=== PATIENT | female | born 1985 | race Caucasian/White ===

== ENCOUNTER 2017-02-20 07:32 | Day surgery (SDC) | payer BC ==
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
[2017-02-20] MEDS ORDERED: LR 1,000 ML IV ONE (08:14)
[2017-02-20] MEDS ORDERED: DOXYCYCLINE HYCLATE 100 MG CAP/TAB PO ONE (08:14)
--- NOTE | 2017-02-20 08:40 | PDHPUP ---
History & Physical Update H&P update statement: This history and physical update is based on an assessment of the patient which was completed after admission or registration (within 24 hours), but prior to the surgery/procedure.
[2017-02-20] MEDS ORDERED: MIDAZOLAM 2 MG/2 ML VIAL ONE (10:09)
[2017-02-20] MEDS ORDERED: DOXYCYCLINE HYCLATE 100 MG CAP/TAB ONE (10:19)
[2017-02-20] MEDS ORDERED: PROPOFOL 200 MG/20 ML VIAL ONE ×2 (10:22→10:23)
[2017-02-20] MEDS ORDERED: fentaNYL 100 MCG/2 ML INJ ONE (10:28)
[2017-02-20] MEDS ORDERED: DOXYCYCLINE INJ 100 MG in NS 250 ML IV ONE (10:30)
--- NOTE | 2017-02-20 10:39 | PDANEPAE ---
ANE History of Present Illness Missed Ab. ANE Past Medical History - Cardiovascular History Hx Hypertension: No Hx Arrhythmias: No Hx Chest Pain: No Hx Coronary Artery / Peripheral Vascular Disease: No Hx CHF / Valvular Disease: No Hx Palpitations: No - Pulmonary History Hx COPD: No Hx Asthma/Reactive Airway Disease: No Hx Recent Upper Respiratory Infection: No Hx Oxygen in Use at Home: No Hx Sleep Apnea: No Sleep Apnea Screening Result - Last Documented: Negative - Surgical History Prior Surgeries: Prior IVF. ANE Review of Systems Review of systems is: negative Review of Systems: - Exercise capacity Exercise capacity: >=4 METS ANE Patient History - Allergies Allergies/Adverse Reactions: Penicillins Allergy (Verified 02/19/17 09:03) - NPO status NPO Status: no food or drink >8 hours NPO Since - Liquids (Date): 02/19/17 NPO Since - Liquids (Time): 18:00 NPO Since - Solids (Date): 02/19/17 NPO Since - Solids (Time): 18:00 - Anes Hx Anes Hx: no prior problems - Smoking Hx Smoking Status: Never smoked Marijuana use: No - Alcohol Use Alcohol Use: Rarely - Family Anes Hx Family Anes Hx: neg - N/A ANE Labs/Vital Signs - Vital Signs Blood Pressure: 98/58 Heart Rate: 65 Respiratory Rate: 18 Height: 167.64 cm Weight: 56.699 kg ANE Physical Exam - Airway Neck exam: FROM Mallampati Score: Class 1 Mouth exam: normal dental/mouth exam - Pulmonary Pulmonary: no respiratory distress - Cardiovascular Cardiovascular: regular rate and rhythym - ASA Status ASA Status: I ANE Anesthesia Plan Anesthesia Plan: GA with mask
[2017-02-20] MEDS ORDERED: ONDANSETRON 4 MG/2 ML VIAL ONE ×2 (11:07→11:27)
[2017-02-20] MEDS ORDERED: KETOROLAC 30 MG/1 ML SDV ONE (11:08)
[2017-02-20] MEDS ORDERED: DEXAMETHASONE 4 MG/ML VIAL ONE ×2 (11:08→11:27)
[2017-02-20] MEDS ORDERED: IBUPROFEN 600 MG TAB PO PRN (11:25)
[2017-02-20 11:44] VITALS: BP 90/52
--- NOTE | 2017-02-20 11:48 | POSTANESTH ---
Post Anesthetic Evaluation Cardiovascular Status: Normal, Stable, Similar to Pre-Op Cond Respiratory Status: Normal, Stable, Similar to Pre-op Cond. Level of Consciousness/Mental Status: Can Participate in Eval, Alert and Oriented Pain Control: Adequate, Prn Tx Ordered Nausea/Vomiting Control: Adequate, Prn Tx Ordered Complications Possibly Related to Anesthesia: None Noted
[2017-02-20] MEDS ORDERED: NALOXONE HCL 0.4 MG/ML INJ IVP PRN (11:49)
[2017-02-20] MEDS ORDERED: HYDROCODONE/APAP 5/325 TAB PO PRN (11:49)
[2017-02-20] MEDS ORDERED: fentaNYL 100 MCG/2 ML INJ IVP PRN (11:49)
[2017-02-20 12:38] VITALS: PULSE 55; RESP 16; TEMP 98.2; O2SAT 98
--- NOTE | 2017-02-20 13:58 | GOP ---
[f rep st] OPERATIVE REPORT DATE OF OPERATION: 02/20/2017 SURGEON: Damaris Mueller MD ANESTHESIA: General anesthesia. ANESTHESIOLOGIST: Sharath Hatch MD. PREOPERATIVE DIAGNOSIS: Missed at 11 weeks by dates, 7 weeks by size. POSTOPERATIVE DIAGNOSIS: Missed at 11 weeks by dates, 7 weeks by size. PROCEDURE PERFORMED: Suction dilation and curettage. FINDINGS: SPECIMENS: Will be products of conception, which will be sent to [facility] for genetic evaluation. ESTIMATED BLOOD LOSS: 20 cc. INDICATIONS: Nora is a 31-year-old, 3, para 1-0-1-1, with a last menstrual period of , and EDC of 09/17/2017, that was set by a 6-week ultrasound. She has had difficulties with conception and has had 2 failed IVF cycles. This was a spontaneous initially seen at [address] [place] [id number] with a crown-rump length of 6 weeks and a slow heart rate of 96. Followup ultrasound a week later showed growth and good heart tones; however, was still showing size less than dates, had a fol lowup ultrasound a week later and showed a demise, baby measuring 8 weeks 0 days with no growth and no heart tones. She was diagnosed with missed . The patient was giving given izaiah atment options of expectant management versus medical management versus surgical management with a dahl ction dilation and curettage. The patient decided to have surgical management. She also wishes to h ave genetic testing with [facility], which will be performed on the products of conception. The patient was consented for the procedure. She understood the risks and benefits; the risks includ ing bleeding, infection, damage to the uterus including possible risk of perforation, damage to other organs if perforation were to occur, risk of incomplete treatment with spontaneous expulsion and/or need for repeat procedure, and compromise of future fertility. She understood these risks and benefi ts, and agreed to proceed. DESCRIPTION OF PROCEDURE: The patient was taken to the operating room. She was placed under general anesthesia without difficulty. She was prepped and draped in the dorsal lithotomy position. An ope n-sided speculum was placed in the vagina, and a single-tooth tenaculum was used to grasp the anterio r lip of the cervix. This was all performed after a WHO time-out. The uterus sounded to 10 cm. The cervix was then progressively dilated with Sam dilators to a #9. A #9 curved suction curette was gently advanced from the cervix to the fundus. Suction was applied and products of conception were re moved with several passages of the suction device. Sharp curettage was then performed in a clockwise fashion until gritty texture was palpated throughout the entire endometrial contents. Suction was a pplied and there was no further tissue felt or seen. Speculum was removed. Tenaculum was removed. There was no bleeding on the cervix. The transvaginal ultrasound was performed, and the uterus showe d a normal and thin endometrial stripe, no retained products of conception. The patient tolerated the procedure well. Sponge, lap, needle, and instrument counts were correct x2 . Patient went to the recovery room in good condition. IV FLUIDS: 500 cc. URINE OUTPUT: Not measured. /[id number]/MODL
== END 2017-02-20 13:15 | disposition home or self-care (01) ==
LOC: FOBOP 07:32
PROVIDERS: ATTEND Obstetrics & Gynecology
PROC: 10D17ZZ Extraction of Products of Conception, Retained, Via Natural or Artificial Opening (ICD-10-PCS; principal; 2017-02-20)
DX: O02.1 Missed abortion (principal); O09.811 Supervision of pregnancy resulting from assisted reproductive technology, first trimester; Z3A.08 8 weeks gestation of pregnancy
CPT/HCPCS: J1100; J1885; J2250; J2405; J2704; J3010